=== PATIENT | female | born 1980 | race Asian ===

== ENCOUNTER 2017-08-06 15:30 | Emergency (ER) | payer OTHER ==
[~2017-08-06] VITALS: Ht 160 cm; Wt 59.0 kg
[2017-08-06 17:36] LABS: PLATELET COUNT 200 K/uL (152-353)
[2017-08-06 17:44] LABS: POTASSIUM 3.9 mmol/L (3.6-5.2)
[2017-08-06 19:25] VITALS: BP 122/67; TEMP 98.5
== END 2017-08-06 19:25 | disposition home or self-care (01) ==
LOC: ED 15:30
PROVIDERS: Internal Medicine
DX: G43.909 Migraine, unspecified, not intractable, without status migrainosus (principal); J02.0 Streptococcal pharyngitis
CPT/HCPCS: 36415; 80053; 85027; 87804; 87880; 96374; 96375; 99284; J1100; J1200; J1885; J2405